=== PATIENT | female | born 1955 | race Caucasian/White ===

== ENCOUNTER 2018-11-20 17:04 | Emergency (ER) | payer OTHER ==
[2018-11-20] MEDS ORDERED: Aspirin 81 mg CHEW TAB* 81 MG TAB.CHEW PO ONE (17:35)
--- NOTE | 2018-11-20 17:37 | UC ---
Dizzy HPI HPI Summary: [place] THE [place] THIS [place] WHEN SHE SUDDENLY FELT DIZZY IF SHE WERE GOING TO PASS OUT. HAD TO PUT HER HEAD BETWEEN HER LEGS. ARRIVES STILL DIZZY WITH A "WEIRD" FEELING IN HER CHEST. STATES SHE WAS SWEATY AT ONSET OF SX AND HAS SLIGHT SOB. HAS NOT HAD ROUTINE MEDICAL CARE IN YEARS. - History Of Current Complaint Chief Complaint: UCDizziness Stated Complaint: DIZZINESS Time Seen by Provider: 11/20/18 17:06 Hx Obtained From: Patient Onset/Duration: Sudden Onset, Lasting Hours, Still Present Timing: Constant Severity Initially: Moderate Severity Currently: Moderate Pain Intensity: 0 Pain Scale Used: 0-10 Numeric Character: Lightheaded, Dizzy Aggravating Factor(s): Nothing Alleviating Factor(s): Nothing Associated Signs And Symptoms: Positive: Diaphoresis, Chest Pain. Negative: Nausea, Visual Changes - Allergies/Home Medications Allergies/Adverse Reactions: Allergies Allergy/AdvReac Type Severity Reaction Status Date / Time Sulfa (Sulfonamide Allergy Hives/Diff. Verified 11/20/18 17:21 Antibiotics) Breathing/I tching Home Medications: Home Medications NK [No Home Medications Reported] 11/20/18 [History Confirmed 11/20/18] PMH/Surg Hx/FS Hx/Imm Hx Previously Healthy: Yes - Surgical History Surgical History: Yes Surgery Procedure, Year, and Place: T&A, mortons neuroma removal - Family History Known Family History: Positive: Hypertension - Social History Alcohol Use: Weekly Substance Use Type: None Smoking Status (MU): Never Smoked Tobacco Review of Systems All Other Systems Reviewed And Are Negative: Yes Constitutional: Negative: Fever Respiratory: Positive: Shortness Of Breath Cardiovascular: Positive: Chest Pain Gastrointestinal: Positive: Negative Neurological: Positive: Other - DIZZY Physical Exam Triage Information Reviewed: Yes Appearance: Well-Appearing, No Pain Distress, Well-Nourished Vital Signs: Initial Vital Signs Temp 96.3 F 11/20/18 17:15 Pulse 107 11/20/18 17:15 Resp 16 11/20/18 17:15 BP 181/91 11/20/18 17:15 Pulse Ox 98 11/20/18 17:15 Vital Signs Reviewed: Yes Eyes: Positive: Conjunctiva Clear ENT: Positive: Hearing grossly normal Neck: Positive: Supple, Nontender, No Lymphadenopathy Respiratory Exam: Normal Cardiovascular: Positive: Tachycardia Abdomen Description: Positive: Soft Musculoskeletal: Positive: No Edema Neurological: Positive: Alert Psychological: Positive: Age Appropriate Behavior Skin: Negative: Rashes Diagnostics - EKG Cardiac Rate: NL - 80BPM Cardiac Rhythm: Sinus: Normal Ectopy: None ST Segment: Non-Specific - <1MM DEPRESSION INFERIOR-LATERAL LEADS Dizzy Course/Dx - Course Course Of Treatment: PT ARRIVES WITH NON SPECIFIC DIZZINESS, CHEST "FEELS WEIRD". BP 181/91. NO ROUTINE MEDICAL CARE. EKG WITH <1MM ST DEPRESSION INFEROLATERAL LEADS. [place] [facility]. - Differential Dx/Diagnosis Provider Diagnosis: Dizziness, High blood pressure - Physician Notifications Discussed Patient Care With: Jame Flynn - [place] [facility] Time Discussed With Above Provider: 17:35 Instructed by Provider To: MD Will See In ED Discharge ED - Sign-Out/Discharge Documenting (check all that apply): Patient Departure All imaging exams completed and their final reports reviewed: No Studies - Discharge Plan Condition: Stable Disposition: TRANS HIGHER LVL OF CARE FAC Referrals: Keith Watkins MD [Primary Care Provider] - - Billing Disposition and Condition Condition: STABLE Disposition: Trans Higher Lvl of Care Fac
[2018-11-20 17:38] VITALS: BP 142/78
== END 2018-11-20 17:40 | disposition short-term general hospital (02) ==
LOC: UCEAST 17:04
DX: R42 Dizziness and giddiness (principal); R03.0 Elevated blood-pressure reading, without diagnosis of hypertension; R06.02 Shortness of breath; Z88.2 Allergy status to sulfonamides
CPT/HCPCS: 93005; 99203; A9270-GY; G0463

== ENCOUNTER 2018-11-20 18:07 | Emergency (ER) | payer OTHER ==
--- NOTE | 2018-11-20 18:27 | ED ---
Syncope/Near Syncope - HPI Summary HPI Summary: 63 year old F brought in by EMS from [facility] to [facility] complains of light headedness that lasted 10 minutes since having a near syncopal episode this afternoon while she was [place] the movie theater. Patient does not feel light headed currently. Patient reports mild intermittent chest discomfort now. She denies decreased appetite. Symptoms aggravated by nothing. Symptoms alleviated by nothing. Patient's last meal was at lunch at 13:00 today. Denies recent illness. Hx near syncopal/syncopal episodes, last syncopal episode being a while ago per patient. - History Of Current Complaint Chief Complaint: EDChestPainROMI Time Seen by Provider: 11/20/18 18:19 Hx Obtained From: Patient Onset/Duration: Resolved Aggravating Factor(s): Nothing Alleviating Factor(s): Nothing Associated Signs And Symptoms: Negative - decreased appetite, Other - mild intermittent chest discomfort - Allergies/Home Medications Allergies/Adverse Reactions: Allergies Allergy/AdvReac Type Severity Reaction Status Date / Time Sulfa (Sulfonamide Allergy Hives/Diff. Verified 11/20/18 17:21 Antibiotics) Breathing/I tching PMH/Surg Hx/FS Hx/Imm Hx Endocrine/Hematology History: Denies: Hx Diabetes Musculoskeletal History: Denies: Hx Rheumatoid Arthritis, Hx Osteoporosis - Cancer History Hx Chemotherapy: No Hx Radiation Therapy: No - Surgical History Surgery Procedure, Year, and Place: T&A, mortons neuroma removal Infectious Disease History: No Infectious Disease History: Denies: Traveled Outside the [place] in Last 30 Days - Family History Known Family History: Positive: Other - breast CA - Social History Alcohol Use: Weekly Hx Substance Use: No Substance Use Type: Reports: None Hx Tobacco Use: No Smoking Status (MU): Never Smoked Tobacco Review of Systems Positive: Other - mild chest discomfort Gastrointestinal: Negative - decreased appetite Neurological: Other - near syncope, light headedness All Other Systems Reviewed And Are Negative: Yes Physical Exam - Summary Physical Exam Summary: Appearance: The patient is well-nourished in no acute distress and in no acute pain. Skin: The skin is warm and dry, and skin color reflects adequate perfusion. HEENT: The head is normocephalic and atraumatic. The pupils are equal and reactive. The conjunctivae are clear and without drainage. Nares are patent and without drainage. Mouth reveals moist mucous membranes, and the throat is without erythema and exudate. The external ears are intact. The ear canals are patent and without drainage. The tympanic membranes are intact. Neck: The neck is supple with full range of motion and non-tender. There are no carotid bruits. There is no neck vein distension. Respiratory: Chest is non-tender. Lungs are clear to auscultation and breath sounds are symmetrical and equal. Cardiovascular: Heart is regular rate and rhythm. There is no murmur or rub auscultated. There is no peripheral edema and pulses are symmetrical and equal. Abdomen: The abdomen is soft and non-tender. There are normal bowel sounds heard in all four quadrants and there is no organomegaly palpated. Musculoskeletal: There is no back tenderness noted. Extremities are non-tender with full range of motion. There is good capillary refill. There is no peripheral edema or calf tenderness elicited. Neurological: Patient is alert and oriented to person, place and time. The patient has symmetrical motor strength in all four extremities. Cranial nerves are grossly intact. Deep tendon reflexes are symmetrical and equal in all four extremities. Psychiatric: The patient has an appropriate affect and does not exhibit any anxiety or depression. Triage Information Reviewed: Yes Vital Signs On Initial Exam: Initial Vitals Temp Pulse Resp BP Pulse Ox 97.5 F 90 18 182/84 100 11/20/18 18:10 11/20/18 18:10 11/20/18 18:10 11/20/18 18:10 11/20/18 18:10 Vital Signs Reviewed: Yes Procedures - Sedation Patient Received Moderate/Deep Sedation with Procedure: No Diagnostics - Vital Signs Vital Signs Temp Pulse Resp BP Pulse Ox 11/20/18 18:10 97.5 F 90 18 182/84 100 - Laboratory Result Diagrams: 11/20/18 18:36 11/20/18 18:36 Lab Statement: Any lab studies that have been ordered have been reviewed, and results considered in the medical decision making process. - EKG 1820 Cardiac Rate: NL EKG Rhythm: Sinus Rhythm Ectopy: None Summary of EKG Findings: Normal sinus rhythm, normal ST, no ectopy, no STEMI Course/Dx Course Of Treatment: Ms. Cardenas presented after a near syncopal episode. History from her sounded like a vagal episode which she has had in the past. She has been monitored here with initial labs unremarkable. We are awaiting a second troponin and I suspect she will go home. Her EKG is normal per she was nontoxic in appearance with stable vitals here - Diagnoses Provider Diagnoses: Near syncope Discharge ED - Sign-Out/Discharge Documenting (check all that apply): Sign-Out Patient Signing out patient TO: Samantha Shaver - awaiting labs and pending disposition - Discharge Plan Condition: Stable Disposition: HOME Patient Education Materials: Syncope (ED) Referrals: Keith Watkins MD [Primary Care Provider] - 2 Days Additional Instructions: Follow up with your primary care provider in 2-3 days. Return to the Emergency Department for new or worsening symptoms. - Billing Disposition and Condition Condition: STABLE Disposition: Home - Attestation Statements Document Initiated by Tatiibe: Yes Documenting Scribe: Clementina Merritt Provider For Whom Aaron is Documenting (Include Credential): Cristobal Liz MD Scribe Attestation: Clementina Schmid, scribed for Cristobal Liz MD on 11/21/18 at 0733. Scribe Documentation Reviewed: Yes Provider Attestation: The documentation as recorded by the tatiibClementina lu accurately reflects the service I personally performed and the decisions made by me, Cristobal Liz MD Status of Scribe Document: Viewed
[2018-11-20 18:46] LABS: ABS Basophils 0.1 10^3/ul (0-0.2); ABS Eosinophils 0.2 10^3/ul (0-0.6); ABS Lymphocytes 1.7 10^3/ul (1.0-4.8); ABS Monocytes 0.6 10^3/ul (0-0.8); Eosinophil % 1.9 %; Hematocrit 40 % (35-47); Hemoglobin 13.5 g/dL (12.0-16.0); Lymphocyte % 20.3 %; Mean Corpuscular HGB Conc 34 g/dL (31-36); Mean Corpuscular Hemoglobin 30 pg (27-31); Mean Corpuscular Volume 88 fL (80-97); Mean Platelet Volume 8.5 fL (7.4-10.4); Platelet Count 223 10^3/uL (150-450); Red Blood Count 4.54 10^6 /uL (3.70-4.87); Red Cell Distribution Width 14 % (10-15); White Blood Count 8.6 10^3/uL (3.5-10.8)
[2018-11-20 19:03] LABS: Albumin 4.6 g/dL (3.2-5.2); Albumin/Globulin Ratio 1.8 (1-3); BUN/Creatinine Ratio 20.7 (8-20); Calcium 9.8 mg/dL (8.6-10.3); EGFR African American 85.5 (>60); EGFR Non-African American 70.6 (>60); Globulin 2.5 g/dL (2-4); Magnesium 1.8 mg/dL (1.9-2.7); Potassium 3.7 mmol/L (3.5-5.0); Total Bilirubin 0.3 mg/dL (0.2-1.0); Total Protein 7.1 g/dL (6.4-8.9)
--- NOTE | 2018-11-20 19:06 | ED ---
Progress - Progress Note Progress Note: Pt is a sign-out from Dr. Liz at the 11/20/2018 1900 shift change pending 2nd troponin and disposition. Repeat troponin was negative. The pt will be discharged home with PCP follow- up. Pt is agreeable with this plan. Course/Dx - Course Course Of Treatment: Pt is a sign-out from Dr. Liz at the 11/20/2018 1900 shift change pending 2nd troponin and disposition. Repeat troponin was negative. The pt will be discharged home with PCP follow-up. Pt is agreeable with this plan. - Diagnoses Provider Diagnoses: Near syncope Discharge ED - Sign-Out/Discharge Documenting (check all that apply): Patient Departure - discharge, Receiving Sign-Out Receiving patient FROM: Cristobal Liz - Discharge Plan Condition: Stable Disposition: HOME Patient Education Materials: Syncope (ED) Referrals: Keith Watkins MD [Primary Care Provider] - 2 Days Additional Instructions: Follow up with your primary care provider in 2-3 days. Return to the Emergency Department for new or worsening symptoms. - Billing Disposition and Condition Condition: STABLE Disposition: Home - Attestation Statements Document Initiated by Aaron: Yes Documenting Scribe: Storm Delgado Provider For Whom Aaron is Documenting (Include Credential): Samantha Shaver MD Scribe Attestation: IStorm, scribed for Samantha Shaver MD on 11/21/18 at 0329. Scribe Documentation Reviewed: Yes Provider Attestation: The documentation as recorded by the Storm mina accurately reflects the service I personally performed and the decisions made by me, Samantha Shaver MD Status of Scribe Document: Viewed
[2018-11-20 19:44] LABS: TSH (Thyroid Stimulating Horm) 5.35 mcIU/mL (0.34-5.60)
[2018-11-20 19:59] LABS: Urine Appearance Clear; Urine Bilirubin Negative (Negative); Urine Blood Negative (Negative); Urine Color Yellow; Urine Glucose Negative (Negative); Urine Ketones Negative (Negative); Urine Nitrite Negative (Negative); Urine Protein Negative (Negative); Urine Specific Gravity 1.011 (1.010-1.030); Urine Urobilinogen Negative (Negative)
[2018-11-20 23:11] VITALS: BP 159/96
== END 2018-11-20 23:10 | disposition home or self-care (01) ==
LOC: ED 18:07
DX: R55 Syncope and collapse (principal); R07.89 Other chest pain; Z88.2 Allergy status to sulfonamides
CPT/HCPCS: 36415; 80053; 81003; 83605; 83735; 84443; 84484; 85025; 85379; 93005; 99283